=== PATIENT | male | born 2000 | race Two or more races ===

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

== ENCOUNTER 2018-09-24 16:06 | Emergency (ER) | payer MEDICAID, OTHER ==
[~2018-09-24] VITALS: Ht 172.7 cm; Wt 67.1 kg
[2018-09-24 16:49] VITALS: BP 143/77
== END 2018-09-24 17:29 | disposition home or self-care (01) ==
LOC: ER 16:06
DX: J34.89 Other specified disorders of nose and nasal sinuses (principal); Y08.89XA Assault by other specified means, initial encounter; Y93.89 Activity, other specified; Y99.8 Other external cause status; Y92.89 Other specified places as the place of occurrence of the external cause
CPT/HCPCS: 70160; 70450

== ENCOUNTER 2019-05-03 11:38 | Emergency (ER) | payer SELFPAY ==
[~2019-05-03] VITALS: Ht 175.3 cm; Wt 72.6 kg
[2019-05-03 14:26] VITALS: BP 124/74
== END 2019-05-03 14:29 | disposition home or self-care (01) ==
LOC: EDBD 11:38 → ER 11:38
DX: S43.005A Unspecified dislocation of left shoulder joint, initial encounter (principal); F12.10 Cannabis abuse, uncomplicated; X58.XXXA Exposure to other specified factors, initial encounter; Y93.89 Activity, other specified; Y99.8 Other external cause status; Y92.89 Other specified places as the place of occurrence of the external cause
CPT/HCPCS: 29105; 73030

== ENCOUNTER 2023-04-02 21:04 | Emergency (ER) | payer BC ==
[~2023-04-02] VITALS: Ht 172.7 cm; Wt 73.1 kg
[2023-04-02 21:15] VITALS: BP 120/80; PULSE 100; RESP 17; O2SAT 99
[2023-04-02] MEDS ORDERED: HYDROcodone-ACET 5/325MG TAB PO ONE (22:00)
[2023-04-02] MEDS ORDERED: NAP500T PO (22:39)
[2023-04-02] MEDS ORDERED: HYDR-4902 PO (22:39)
== END 2023-04-03 00:37 | disposition home or self-care (01) ==
LOC: ER 21:04
DX: S43.004A Unspecified dislocation of right shoulder joint, initial encounter (principal); F12.10 Cannabis abuse, uncomplicated; V00.311A Fall from snowboard, initial encounter; Y93.23 Activity, snow (alpine) (downhill) skiing, snowboarding, sledding, tobogganing and snow tubing; Y92.89 Other specified places as the place of occurrence of the external cause; Y99.8 Other external cause status
CPT/HCPCS: 23650; 73030